=== PATIENT | female | born 1955 | race Hispanic/Latino ===

== ENCOUNTER 2017-08-19 09:13 | Day surgery (SDC) | payer OTHER ==
[2017-08-19 10:01] VITALS: BMI 23.3
[2017-08-19 10:23] VITALS: O2SAT 100
[2017-08-19] MEDS ORDERED: Lactated Ringer's 1,000 ML IV ONE (11:37)
[2017-08-19] MEDS ORDERED: Propofol 10 mg/ml Inj (20 ML) ONE (11:40)
[2017-08-19] MEDS ORDERED: Atropine Sulfate 0.4 mg/ml (0.8mg/2ml) Syringe IV ONE (11:53)
[2017-08-19 13:20] VITALS: RESP 16
[2017-08-19 13:48] VITALS: BP 132/80; PULSE 80; TEMP 97.2
== END 2017-08-19 13:40 | disposition home or self-care (01) ==
LOC: C.ENDO 09:13 → EDSEX 09:13 → C.ENDO 13:40
PROVIDERS: ATTEND Internal Medicine Gastroenterology
DX: D12.5 Benign neoplasm of sigmoid colon (principal); D12.4 Benign neoplasm of descending colon; Z80.0 Family history of malignant neoplasm of digestive organs; K64.1 Second degree hemorrhoids; K57.90 Diverticulosis of intestine, part unspecified, without perforation or abscess without bleeding
CPT/HCPCS: 45380; 88305; J2704; J7120

== ENCOUNTER 2018-04-29 15:43 | Inpatient (IN) | payer OTHER ==
[2018-04-29 15:43] VITALS: BMI 23.3
--- NOTE | 2018-04-29 16:26 | C.PDOC ---
Time Seen by Provider: 04/29/18 16:18 Chief Complaint (Nursing): Abdominal Pain Past Medical History Vital Signs: Last Vital Signs Temp 98.5 F 04/29/18 16:09 Pulse 83 04/29/18 16:09 Resp 18 04/29/18 16:09 BP 115/50 L 04/29/18 16:09 Pulse Ox 97 04/29/18 16:09 - Medical History PMH: Colonic Polyps, Gastritis Denies: Fractures, Chronic Kidney Disease Surgical History: Endoscopy Denies: Pacemaker - Social History Hx Alcohol Use: No Hx Substance Use: No - Immunization History Hx Tetanus Toxoid Vaccination: Yes Hx Influenza Vaccination: Yes Hx Pneumococcal Vaccination: Yes ED Course And Treatment O2 Sat by Pulse Oximetry: 97 Disposition - Disposition
[2018-04-29] MEDS ORDERED: Sodium Chloride 0.9% 1,000 ML IV STA (16:43)
[2018-04-29] MEDS ORDERED: Iohexol 240 (50 ml) PO STA (16:43)
[2018-04-29] MEDS ORDERED: Iohexol 240 (50 ml) ONE (16:58)
[2018-04-29] MEDS ORDERED: Sodium Chloride 0.9% 1,000 ML ONE (16:58)
[2018-04-29 16:59] LABS: BASO % 0.3 % (0.0-2.0); EOS # 0.2 K/uL (0.0-0.7); EOS % 1.6 % (0.0-4.0); LYMPH # 2.9 K/uL (1.0-4.3); LYMPH % 25.7 % (20.0-40.0); MEAN CELL VOLUME 94.2 fL (81.0-99.0); MEAN CORPUSCULAR HEMOGLOBIN 31.9 pg (27.0-31.0); MEAN CORPUSCULAR HGB CONC 33.9 g/dL (33.0-37.0); MEAN PLATELET VOLUME 7.8 fL (7.2-11.7); MONO # 0.9 K/uL (0.0-0.8); MONO % 8.4 % (0.0-10.0); NEUT # 7.2 K/uL (1.8-7.0); RBC 4.07 Mil/uL (3.80-5.20); WHITE BLOOD COUNT 11.3 K/uL (4.8-10.8)
[2018-04-29 17:04] LABS: SQUAMOUS EPITHIAL 1 /hpf (0-5); URINE BACTERIA RARE (<OCC); URINE BILIRUBIN NEGATIVE (NEGATIVE); URINE CLARITY Clear (Clear); URINE COLOR Straw (YELLOW); URINE GLUCOSE (UA) NORMAL (Normal); URINE LEUKOCYTE ESTERASE TRACE Leu/uL (Negative); URINE PROTEIN NEGATIVE (NEGATIVE); URINE UROBILINOGEN NORMAL mg/dL (0.2-1.0)
[2018-04-29 17:07] LABS: PROTHROMBIN TIME 11.1 SECONDS (9.7-12.2); URINE BLOOD 1+ (NEGATIVE)
[2018-04-29 17:20] LABS: ALB/GLOB RATIO 1.4 (1.0-2.1); ALBUMIN 4.2 g/dL (3.5-5.0); ALT/SGPT 34 U/L (9-52); AST/SGOT 30 U/L (14-36); BLOOD UREA NITROGEN 10 mg/dL (7-17); CALCIUM 9.4 mg/dl (8.6-10.4); GFR NON-AFRICAN AMERICAN > 60; LIPASE 42 U/L (23-300)
--- NOTE | 2018-04-29 17:47 | C.PDOC ---
History Of Present Illness 62 y/o female presents to ED with c/o right sided abdominal pain radiating to back for 2 days. Patient denies nausea, vomiting, diarrhea, fever, dysuria, chest pain or any other complaints at this time. <Amee Perales - Last Filed: 04/29/18 19:03> History Per: Patient History/Exam Limitations: no limitations Onset/Duration Of Symptoms: Days Current Symptoms Are (Timing): Still Present Location Of Pain/Discomfort: RLQ <Amee Perales - Last Filed: 04/29/18 19:03> <Michael Boudreaux - Last Filed: 04/29/18 21:39> Time Seen by Provider: 04/29/18 16:18 Chief Complaint (Nursing): Abdominal Pain Past Medical History Reviewed: Historical Data, Nursing Documentation, Vital Signs Vital Signs: Last Vital Signs Temp 98.5 F 04/29/18 16:09 Pulse 83 04/29/18 16:09 Resp 18 04/29/18 16:09 BP 115/50 L 04/29/18 16:09 Pulse Ox 97 04/29/18 16:09 - Medical History PMH: Colonic Polyps, Gastritis Surgical History: Endoscopy Family History: States: No Known Family Hx - Social History Hx Alcohol Use: No Hx Substance Use: No - Immunization History Hx Tetanus Toxoid Vaccination: Yes Hx Influenza Vaccination: Yes Hx Pneumococcal Vaccination: Yes <Amee Perales - Last Filed: 04/29/18 19:03> Vital Signs: Last Vital Signs Temp 98.9 F 04/29/18 19:53 Pulse 82 04/29/18 19:53 Resp 16 04/29/18 19:53 BP 126/85 04/29/18 19:53 Pulse Ox 97 04/29/18 19:53 <Michael Boudreaux - Last Filed: 04/29/18 21:39> Review Of Systems Constitutional: Negative for: Fever, Chills Gastrointestinal: Positive for: Abdominal Pain. Negative for: Nausea, Vomiting, Diarrhea Genitourinary: Negative for: Dysuria, Hematuria Musculoskeletal: Positive for: Back Pain Skin: Negative for: Rash <Amee Perales - Last Filed: 04/29/18 19:03> Physical Exam - Physical Exam Appears: Non-toxic, No Acute Distress Skin: Warm, Dry, No Rash Head: Atraumatic, Normacephalic Eye(s): bilateral: Normal Inspection Oral Mucosa: Moist Neck: Normal ROM, Supple Cardiovascular: Rhythm Regular Respiratory: Normal Breath Sounds, No Rales, No Rhonchi, No Wheezing Gastrointestinal/Abdominal: Soft, Tenderness (RLQ), No Guarding, No Rebound Back: No CVA Tenderness Neurological/Psych: Oriented x3, Normal Speech, Normal Cognition <Amee Perales - Last Filed: 04/29/18 19:03> ED Course And Treatment - Laboratory Results Result Diagrams: 04/29/18 16:55 04/29/18 16:55 O2 Sat by Pulse Oximetry: 97 (RA) Pulse Ox Interpretation: Normal Progress Note: CT abd/pelvis with contrat, Blood work ordered, Zofran, IV fluids administered <Amee Perales - Last Filed: 04/29/18 19:03> - Laboratory Results Result Diagrams: 04/29/18 16:55 04/29/18 16:55 <Michael Boudreaux - Last Filed: 04/29/18 21:39> Disposition - Disposition Disposition Time: 19:04 <Amee Perales Filed: 04/29/18 19:03> Discussed With DrMichelle: Abdoulaye Posadas Comment: accepted the pt onhis service and took over the care at 9:37PM Doctor Will See Patient In The: ED Counseled Patient/Family Regarding: Studies Performed, Diagnosis - POA Present On Arrival: None <Michael Boudreaux - Last Filed: 04/29/18 21:39> - Disposition Disposition: HOSPITALIZED Condition: FAIR Forms: [facility] (Albanian) - Clinical Impression Clinical Impression: Abdominal pain - PA / CODING COMPLIANCE SPECIALIST / Resident Statement MD/DO has reviewed & agrees with the documentation as recorded. - Scribe Statement The provider has reviewed the documentation as recorded by the Elizabeth Haney All medical record entries made by the Elizabeth were at my direction and personally dictated by me. I have reviewed the chart and agree that the record accurately reflects my personal performance of the history, physical exam, medical decision making, and the department course for this patient. I have also personally directed, reviewed, and agree with the discharge instructions and disposition. <Amee Perales - Last Filed: 04/29/18 19:03> Physician Patient Turnover Patient Signed Over To: Michael Boudreaux Handoff Comments: pending CT and re-evaluation <Amee Perales - Last Filed: 04/29/18 19:03> Decision To Admit <Amee Perales - Last Filed: 04/29/18 19:03> - Pt Status Changed To: Hospital Disposition Of: Inpatient - Admit Certification Admit to Inpatient:: After my assessment, the patient will require hospitalization for at least two midnights. This is because of the severity of symptoms shown, intensity of services needed, and/or the medical risk in this patient being treated as an outpatient. - InPatient: Physician Admission Certification:: After my assessment, the patient will require hospitalization for at least two midnights. This is because of the severity of symptoms shown, intensity of services needed, and/or the medical risk in this patient being treated as an outpatient. - . Bed Request Type: Regular Admitting Physician: Abdoulaye Posadas <Michael Boudreaux - Last Filed: 04/29/18 21:39> - . Patient Diagnosis: Abdominal pain
[2018-04-29] MEDS ORDERED: Iohexol 300 100 ML IJ ONE (18:19)
[2018-04-29] MEDS ORDERED: Ciprofloxacin 400mg/200ml D5W 400 MG/200 ML BAG IVPB STA (20:24)
[2018-04-29] MEDS ORDERED: metroNIDAZOLE IV 500 mg/100 ml 500 MG/100 ML BAG IVPB SCH (20:30)
[2018-04-29] MEDS ORDERED: Ciprofloxacin 400mg/200ml D5W 400 MG/200 ML BAG IVPB ONE (20:32)
--- NOTE | 2018-04-29 22:00 | CP.PCM.HP ---
History of Present Illness - History of Present Illness History of Present Illness: General Surgery H&P for Dr. Posadas Pt is a 62F with PMH of gastritis and constipation who presented to the ED for worsening abdominal pain. Patient states that pain began yesterday in the epigastrium moved to the RLQ and gradually worsened so she came to the ER. Patient states pain did not improved with several tums or bowel movements. Patient's last BM was today and normal color, no blood. Patient denies any fevers, chills, nausea, vomiting, diarrhea, chest pain, SOB, dysuria, hematuria, or any other problems. Patient reports this is the first time that she has had anything like this before. PMH: gastritis, constipation PSH: D&C ALL: pcn, cefoxitin Social: smokes 10-15 cigarettes/day, 1 glass of wine a day, no illicit subst ances Present on Admission - Present on Admission Any Indicators Present on Admission: No Review of Systems - Review of Systems All systems: reviewed and no additional remarkable complaints except (as per HPI) Past Patient History - Infectious Disease Hx of Infectious Diseases: None - Past Medical History & Family History Past Medical History?: Yes Past Family History: Reviewed and not pertinent - Past Social History Smoking Status: Light Smoker < 10 Cigarettes Daily Alcohol: < 2 Drinks/Day Drugs: Denies Home Situation {Lives}: With Family - CARDIAC Hx Pacemaker: No - PULMONARY Hx Respiratory Disorders: Yes Hx Respiratory Tract Infection: Yes (MAY) Other/Comment: CHRONIC POST NASAL DRIP WITH BROCHOSPASM - NEUROLOGICAL Hx Neurological Disorder: No - HEENT Hx HEENT Problems: Yes Other/Comment: CHRONIC SINUSITIS AND POST NASAL DRIP WITH BRONCHOSPASM - RENAL Hx Chronic Kidney Disease: No - ENDOCRINE/METABOLIC Other/Comment: PRE DIABETIC - HEMATOLOGICAL/ONCOLOGICAL Hx Blood Disorders: No Hx Blood Transfusions: No Hx Cancer: No - INTEGUMENTARY Hx Dermatological Problems: Yes Hx Basil Cell: Yes (LEFT SIDE FACE) - MUSCULOSKELETAL/RHEUMATOLOGICAL Hx Fractures: No - GASTROINTESTINAL Hx Gastritis: Yes - GENITOURINARY/GYNECOLOGICAL Hx Genitourinary Disorders: Yes Other/Comment: DEMISE IN UTERO WITH SIGNIFICANT SURGERY PER REPORT ALMOST FULL TERM - PSYCHIATRIC Hx Substance Use: No - SURGICAL HISTORY Hx Surgeries: Yes Hx Dilation and Curettage: Yes Other/Comment: BASAL CELL REMOVED FROM FACE - ANESTHESIA Hx Anesthesia: Yes Hx Anesthesia Reactions: No Hx Malignant Hyperthermia: No Meds Allergies/Adverse Reactions: Allergies Allergy/AdvReac Type Severity Reaction Status Date / Time cefoxitin [From Mefoxin] Allergy RASH Verified 08/19/17 10:02 Penicillins Allergy RASH Verified 08/19/17 10:02 Physical Exam - Constitutional Appears: Well, Non-toxic, No Acute Distress - Head Exam Head Exam: ATRAUMATIC, NORMOCEPHALIC - Eye Exam Eye Exam: Normal appearance. absent: Conjunctival injection, Scleral icterus - ENT Exam ENT Exam: Mucous Membranes Moist, Normal Oropharynx - Respiratory Exam Respiratory Exam: NORMAL BREATHING PATTERN. absent: Accessory Muscle Use, Respiratory Distress - Cardiovascular Exam Cardiovascular Exam: RRR - GI/Abdominal Exam GI & Abdominal Exam: Soft, Tenderness (RLQ tenderness to palpation with RLQ referred pain when the RUQ and LLQ are palpated). absent: Distended, Guarding, Rebound - Extremities Exam Extremities exam: Positive for: pedal pulses present. Negative for: calf tenderness, pedal edema - Back Exam Back exam: absent: CVA tenderness (L), CVA tenderness (R) - Neurological Exam Neurological exam: Alert, Oriented x3 - Psychiatric Exam Psychiatric exam: Normal Affect, Normal Mood - Skin Skin Exam: Dry, Normal Color, Warm Results - Vital Signs Recent Vital Signs: Last Vital Signs Temp 99.1 F 04/29/18 21:47 Pulse 78 04/29/18 21:47 Resp 18 04/29/18 21:47 BP 134/92 H 04/29/18 21:47 Pulse Ox 98 04/29/18 21:47 - Labs Result Diagrams: 04/29/18 16:55 04/29/18 16:55 Labs: Laboratory Results - last 24 hr 04/29/18 04/29/18 04/29/18 16:55 16:55 16:55 WBC 11.3 H RBC 4.07 Hgb 13.0 Hct 38.3 MCV 94.2 MCH 31.9 H MCHC 33.9 RDW 14.0 Plt Count 286 MPV 7.8 Neut % (Auto) 64.0 Lymph % (Auto) 25.7 [place] % (Auto) 8.4 Eos % (Auto) 1.6 Baso % (Auto) 0.3 Neut # (Auto) 7.2 H Lymph # (Auto) 2.9 [place] # (Auto) 0.9 H Eos # (Auto) 0.2 Baso # (Auto) 0.0 PT 11.1 INR 1.0 APTT 37 H Sodium Potassium Chloride Carbon Dioxide Anion Gap BUN Creatinine Est GFR ( Amer) Est GFR (Non-Af Amer) Random Glucose Calcium Total Bilirubin AST ALT Alkaline Phosphatase Total Protein Albumin Globulin Albumin/Globulin Ratio Lipase Urine Color Straw Urine Clarity Clear Urine pH 7.0 Ur Specific [place] 1.004 Urine Protein Negative Urine Glucose (UA) Normal Urine Ketones Negative Urine Blood 1+ H Urine Nitrate Negative Urine Bilirubin Negative Urine Urobilinogen Normal Ur Leukocyte Esterase Trace Urine WBC (Auto) 3 Urine RBC (Auto) 1 Ur Squamous Epith Cells 1 Urine Bacteria Rare 04/29/18 16:55 WBC RBC Hgb Hct MCV MCH MCHC RDW Plt Count MPV Neut % (Auto) Lymph % (Auto) [place] % (Auto) Eos % (Auto) Baso % (Auto) Neut # (Auto) Lymph # (Auto) [place] # (Auto) Eos # (Auto) Baso # (Auto) PT INR APTT Sodium 141 Potassium 3.9 Chloride 104 Carbon Dioxide 25 Anion Gap 15 BUN 10 Creatinine 0.5 L Est GFR ( Amer) > 60 Est GFR (Non-Af Amer) > 60 Random Glucose 87 Calcium 9.4 Total Bilirubin 1.1 AST 30 ALT 34 Alkaline Phosphatase 79 Total Protein 7.1 Albumin 4.2 Globulin 2.9 Albumin/Globulin Ratio 1.4 Lipase 42 Urine Color Urine Clarity Urine pH Ur Specific [place] Urine Protein Urine Glucose (UA) Urine Ketones Urine Blood Urine Nitrate Urine Bilirubin Urine Urobilinogen Ur Leukocyte Esterase Urine WBC (Auto) Urine RBC (Auto) Ur Squamous Epith Cells Urine Bacteria - Imaging and Cardiology CT scan - abdomen Status: Image reviewed by me, Report reviewed by me Assessment & Plan - Assessment and Plan (Free Text) Assessment: 62F with acute appendicitis Plan: Admit to med/surgery floor Plan for OR tomorrow AM for laparoscopic appendectomy IVF IV antibiotics PRN pain and nausea medication NPO after midnight AM labs protonix, stool softeners, SCD, incentive spirometers Discussed with Dr. Posadas, Meagan Diaz, PGY2
[2018-04-29] MEDS ORDERED: metroNIDAZOLE IV 500 mg/100 ml 500 MG/100 ML BAG IVPB STA (22:04)
[2018-04-30] MEDS: Lactated Ringer's 1,000 ML IV SCH ×2 (00:05→07:09)
[2018-04-30] MEDS: Oxycodone/Acetaminophen 5/325 mg Tab PO PRN ×2 (00:50→22:09)
[2018-04-30 06:08] LABS: BASO % 0.5 % (0.0-2.0); EOS # 0.2 K/uL (0.0-0.7); EOS % 1.8 % (0.0-4.0); HEMOGLOBIN 11.3 g/dL (11.0-16.0); LYMPH # 2.7 K/uL (1.0-4.3); LYMPH % 25.6 % (20.0-40.0); MEAN CELL VOLUME 93.6 fL (81.0-99.0); MEAN CORPUSCULAR HEMOGLOBIN 31.7 pg (27.0-31.0); MEAN CORPUSCULAR HGB CONC 33.9 g/dL (33.0-37.0); MEAN PLATELET VOLUME 7.8 fL (7.2-11.7); MONO % 9.7 % (0.0-10.0); NEUT # 6.6 K/uL (1.8-7.0); NEUT % 62.4 % (50.0-75.0); RBC 3.55 Mil/uL (3.80-5.20); RED CELL DISTRIBUTION WIDTH 14.2 % (11.5-14.5); WHITE BLOOD COUNT 10.6 K/uL (4.8-10.8)
[2018-04-30 06:42] LABS: ALB/GLOB RATIO 1.3 (1.0-2.1); ALBUMIN 3.2 g/dL (3.5-5.0); ALT/SGPT 30 U/L (9-52); AST/SGOT 18 U/L (14-36); BLOOD UREA NITROGEN 7 mg/dL (7-17); CALCIUM 8.3 mg/dl (8.6-10.4); GFR NON-AFRICAN AMERICAN > 60
[2018-04-30] MEDS: Ciprofloxacin 400mg/200ml D5W 400 MG/200 ML BAG IVPB SCH ×2 (07:08→20:25)
--- NOTE | 2018-04-30 08:24 | RAD ---
Date of service: 04/30/2018 HISTORY: pre-op COMPARISON: No prior. FINDINGS: LUNGS: The lungs are well inflated and clear. PLEURA: No pleural effusions or pneumothorax. CARDIOVASCULAR: The heart is normal in size. No aortic atherosclerotic calcification present. OSSEOUS STRUCTURES: Within normal limits for the patient's age. VISUALIZED UPPER ABDOMEN: Normal. OTHER FINDINGS: None. IMPRESSION: No active pulmonary disease.
--- NOTE | 2018-04-30 09:02 | CT ---
PROCEDURE: CT Abdomen and Pelvis with oral and IV contrast. HISTORY: abd pain RLQ COMPARISON: None available TECHNIQUE: Contiguous axial images of the abdomen and pelvis. Oral and IV contrast was administered. Coronal and Sagittal reformats generated and reviewed. Contrast dose: 100 cc Omnipaque 300 Radiation dose: Total exam DLP = 433.51 mGy-cm. This CT exam was performed using one or more of the following dose reduction techniques: Automated exposure control, adjustment of the mA and/or kV according to patient size, and/or use of iterative reconstruction technique. FINDINGS: LOWER THORAX: No visible consolidation, pleural effusion, or pneumothorax. LIVER: Tiny too small to characterize hepatic hypodensities, statistically likely cysts or hemangiomas. GALLBLADDER AND BILE DUCTS: Unremarkable. PANCREAS: Unremarkable. SPLEEN: Unremarkable. ADRENALS: Mild adrenal gland hypertrophy. KIDNEYS AND URETERS: The kidneys enhance symmetrically. No hydronephrosis or obstructing renal calculus. Bilateral too small to characterize renal hypodensities, statistically likely cysts. BLADDER: The urinary bladder appears unremarkable. REPRODUCTIVE: Uterus is present. 3 cm partially calcified uterine fibroid. APPENDIX: The appendix is dilated measuring approximately 12 mm in diameter with associated inflammatory stranding and wall thickening. BOWEL: Gastric wall thickening may be exaggerated by nondistention however gastritis is suspected. The bowel loops appear within normal limits of caliber without evidence of intestinal obstruction. Wall thickening of the right colon and terminal ileum may reflect colitis/enteritis secondary to acute appendicitis. PERITONEUM: No significant free fluid. No definite free air. LYMPH NODES: No bulky lymphadenopathy identified. VASCULATURE: No aortic aneurysm. BONES: Mild degenerative changes. OTHER FINDINGS: None. IMPRESSION: The appendix is dilated measuring approximately 12 mm in diameter with associated inflammatory stranding and wall thickening. Appearance consistent with acute appendicitis. Gastric wall thickening may be exaggerated by nondistention however gastritis is suspected. The bowel loops appear within normal limits of caliber without evidence of intestinal obstruction. Wall thickening of the right colon and terminal ileum may reflect colitis/enteritis secondary to acute appendicitis. Additional findings. Preliminary impression was provided by [employer].
[2018-04-30] MEDS: Fluticasone Nasal 50 mcg/Spray NAS SCH (09:29)
[2018-04-30] MEDS ORDERED: Propofol 10 mg/ml Inj (20 ML) ONE (10:31)
[2018-04-30] MEDS ORDERED: Rocuronium 10 mg/ml (5 ml) ONE (10:32)
[2018-04-30] MEDS ORDERED: Bupivacaine-Epi 0.5%-1:200,000 PF Inj ONE (11:10)
[2018-04-30] MEDS ORDERED: Lactated Ringer's 1,000 ML IV SCH (11:30)
[2018-04-30] MEDS ORDERED: Neostigmine Methylsulfate 3mg/3ml Syringe IV ONE (11:36)
--- NOTE | 2018-04-30 12:32 | PCM.SURG1 ---
Surgeon's Initial Post Op Note - Surgeon's Notes Surgeon: Dr. Posadas Imcu Specialist: Dr. Graham PGY-4 Type of Anesthesia: General Endo, Local Pre-Operative Diagnosis: Acute appendicitis Operative Findings: Acute appendicitis Post-Operative Diagnosis: Acute appendicitis Operation Performed: Laparoscopic appendectomy Specimen/Specimens Removed: appendix Estimated Blood Loss: EBL {In ML}: 10 Blood Products Given: N/A Drains Used: No Drains Post-Op Condition: Fair Date of Surgery/Procedure: 04/30/18 Time of Surgery/Procedure: 12:05
[2018-04-30 17:20] VITALS: RESP 20
[2018-05-01] MEDS: Lactated Ringer's 1,000 ML IV SCH
[2018-05-01 07:55] LABS: BASO % 0.1 % (0.0-2.0); EOS # 0.1 K/uL (0.0-0.7); EOS % 0.7 % (0.0-4.0); HEMOGLOBIN 10.5 g/dL (11.0-16.0); LYMPH # 2.7 K/uL (1.0-4.3); LYMPH % 23.7 % (20.0-40.0); MEAN CORPUSCULAR HEMOGLOBIN 31.9 pg (27.0-31.0); MEAN CORPUSCULAR HGB CONC 33.6 g/dL (33.0-37.0); MEAN PLATELET VOLUME 8.2 fL (7.2-11.7); MONO # 0.9 K/uL (0.0-0.8); MONO % 7.9 % (0.0-10.0); NEUT # 7.7 K/uL (1.8-7.0); NEUT % 67.6 % (50.0-75.0); RBC 3.3 Mil/uL (3.80-5.20); RED CELL DISTRIBUTION WIDTH 13.7 % (11.5-14.5); WHITE BLOOD COUNT 11.3 K/uL (4.8-10.8)
[2018-05-01] MEDS: Ciprofloxacin 400mg/200ml D5W 400 MG/200 ML BAG IVPB SCH (08:17)
[2018-05-01 08:23] LABS: ALB/GLOB RATIO 1.2 (1.0-2.1); ALBUMIN 2.9 g/dL (3.5-5.0); ALT/SGPT 27 U/L (9-52); AST/SGOT 21 U/L (14-36); BLOOD UREA NITROGEN 9 mg/dL (7-17); CALCIUM 8.3 mg/dl (8.6-10.4); GFR NON-AFRICAN AMERICAN > 60
[2018-05-01] MEDS: Fluticasone Nasal 50 mcg/Spray NAS SCH (09:48)
[2018-05-01] MEDS: Oxycodone/Acetaminophen 5/325 mg Tab PO PRN (11:19)
--- NOTE | 2018-05-01 13:34 | CP.PCM.DIS ---
Provider - Provider Date of Admission: 04/29/18 21:36 Attending physician: Abdoulaye Posadas MD Consults: none Time Spent in preparation of Discharge (in minutes): 30 Diagnosis - Discharge Diagnosis (1) Appendicitis Status: Resolved Hospital Course - Lab Results Lab Results: Most Recent Lab Values WBC 11.3 K/uL (4.8-10.8) H 05/01/18 07:00 RBC 3.30 Mil/uL (3.80-5.20) L 05/01/18 07:00 Hgb 10.5 g/dL (11.0-16.0) L 05/01/18 07:00 Hct 31.3 % (34.0-47.0) L 05/01/18 07:00 MCV 95.0 fL (81.0-99.0) 05/01/18 07:00 MCH 31.9 pg (27.0-31.0) H 05/01/18 07:00 MCHC 33.6 g/dL (33.0-37.0) 05/01/18 07:00 RDW 13.7 % (11.5-14.5) 05/01/18 07:00 Plt Count 226 K/uL (130-400) 05/01/18 07:00 MPV 8.2 fL (7.2-11.7) 05/01/18 07:00 Neut % (Auto) 67.6 % (50.0-75.0) 05/01/18 07:00 Lymph % (Auto) 23.7 % (20.0-40.0) 05/01/18 07:00 [place] % (Auto) 7.9 % (0.0-10.0) 05/01/18 07:00 Eos % (Auto) 0.7 % (0.0-4.0) 05/01/18 07:00 Baso % (Auto) 0.1 % (0.0-2.0) 05/01/18 07:00 Neut # (Auto) 7.7 K/uL (1.8-7.0) H 05/01/18 07:00 Lymph # (Auto) 2.7 K/uL (1.0-4.3) 05/01/18 07:00 [place] # (Auto) 0.9 K/uL (0.0-0.8) H 05/01/18 07:00 Eos # (Auto) 0.1 K/uL (0.0-0.7) 05/01/18 07:00 Baso # (Auto) 0.0 K/uL (0.0-0.2) 05/01/18 07:00 PT 11.1 SECONDS (9.7-12.2) 04/29/18 16:55 INR 1.0 04/29/18 16:55 APTT 37 SECONDS (21-34) H 04/29/18 16:55 Sodium 137 mmol/L (132-148) 05/01/18 07:00 Potassium 3.6 mmol/L (3.6-5.2) 05/01/18 07:00 Chloride 105 mmol/L (98-107) 05/01/18 07:00 Carbon Dioxide 27 mmol/L (22-30) 05/01/18 07:00 Anion Gap 9 (10-20) L 05/01/18 07:00 BUN 9 mg/dL (7-17) 05/01/18 07:00 Creatinine 0.6 mg/dL (0.7-1.2) L 05/01/18 07:00 Est GFR ( Amer) > 60 05/01/18 07:00 Est GFR (Non-Af Amer) > 60 05/01/18 07:00 Random Glucose 117 mg/dL (65-105) H 05/01/18 07:00 Calcium 8.3 mg/dl (8.6-10.4) L 05/01/18 07:00 Total Bilirubin 0.6 mg/dL (0.2-1.3) 05/01/18 07:00 AST 21 U/L (14-36) 05/01/18 07:00 ALT 27 U/L (9-52) 05/01/18 07:00 Alkaline Phosphatase 59 U/L (38-126) 05/01/18 07:00 Total Protein 5.4 g/dL (6.3-8.3) L 05/01/18 07:00 Albumin 2.9 g/dL (3.5-5.0) L 05/01/18 07:00 Globulin 2.5 gm/dL (2.2-3.9) 05/01/18 07:00 Albumin/Globulin Ratio 1.2 (1.0-2.1) 18 07:00 Lipase 42 U/L (23-300) 04/29/18 16:55 Urine Color Straw (YELLOW) 04/29/18 16:55 Urine Clarity Clear (Clear) 04/29/18 16:55 Urine pH 7.0 (5.0-8.0) 04/29/18 16:55 Ur Specific [place] 1.004 (1.003-1.030) 04/29/18 16:55 Urine Protein Negative mg/dL (NEGATIVE) 04/29/18 16:55 Urine Glucose (UA) Normal mg/dL (Normal) 04/29/18 16:55 Urine Ketones Negative mg/dL (NEGATIVE) 04/29/18 16:55 Urine Blood 1+ (NEGATIVE) H 04/29/18 16:55 Urine Nitrate Negative (NEGATIVE) 04/29/18 16:55 Urine Bilirubin Negative (NEGATIVE) 04/29/18 16:55 Urine Urobilinogen Normal mg/dL (0.2-1.0) 04/29/18 16:55 Ur Leukocyte Esterase Trace Ezequiel/uL (Negative) 04/29/18 16:55 Urine WBC (Auto) 3 /hpf (0-5) 04/29/18 16:55 Urine RBC (Auto) 1 /hpf (0-3) 04/29/18 16:55 Ur Squamous Epith Cells 1 /hpf (0-5) 04/29/18 16:55 Urine Bacteria Rare (<OCC) 04/29/18 16:55 - Hospital Course Hospital Course: 62F with PMHx of gastritis and constipation presented to the ED for worsening abdominal pain on 04/29/18. The pain began in the epigastrium and moved to the RLQ. Patient denied any fevers, chills, nausea, vomiting, diarrhea, chest pain, SOB, dysuria, hematuria. CT Abd/pelvis showed acute appendicitis and gastritis. The next morning, she was taken to the OR for laparoscopic appendectomy. On POD#1, she was tolerating regular diet, ambulating, passing flatus. Labs were WNL and she was discharged home to follow up with Dr. Posadas in his office. Discharge Exam - Head Exam Head Exam: ATRAUMATIC, NORMOCEPHALIC - Eye Exam Eye Exam: EOMI, Normal appearance - Respiratory Exam Respiratory Exam: NORMAL BREATHING PATTERN. absent: Respiratory Distress - Cardiovascular Exam Cardiovascular Exam: +S1, +S2 - GI/Abdominal Exam GI & Abdominal Exam: Soft, Tenderness (mild tenderness at incision sites). absent: Distended, Firm, Guarding Additional comments: Dermabond in place over laparoscopic incision sites - Neurological Exam Neurological exam: Alert, Oriented x3 - Psychiatric Exam Psychiatric exam: Normal Affect, Normal Mood - Skin Skin Exam: Dry, Warm Discharge Plan - Follow Up Plan Condition: FAIR Disposition: HOME/ ROUTINE Patient education suggested?: Yes Instructions: Appendectomy, Laparoscopic Surgery (DC) Additional Instructions: Follow up with Dr. Posadas in his office in 1-2 weeks, call to make appointment May shower tomorrow, but do not take a bath or swim Leave Dermabond in place, it will fall off on its own over time Avoid heavy lifting for 4 weeks May take Tylenol or Ibuprofen PRN pain Referrals: Abdoulaye Posadas MD [Staff Provider] -
--- NOTE | 2018-05-01 14:27 | CARD ---
APPROVED REPORT Date of service: 04/30/2018 EKG Measurement Heart [id number] <Conclusion> Normal sinus rhythm Normal ECG
[2018-05-01 15:57] VITALS: BP 101/68; PULSE 56; TEMP 98.9; O2SAT 96
[2018-05-02] MEDS ORDERED: Pneumococcal 23-Valent Vaccine IM ONE (10:00)
--- NOTE | 2018-05-05 05:28 | OP ---
PROCEDURE DATE: 04/30/2018 PREOPERATIVE DIAGNOSIS: Acute appendicitis. POSTOPERATIVE DIAGNOSIS: Acute appendicitis. PROCEDURE PERFORMED: Laparoscopic appendectomy. SURGEON: Abdoulaye Posadas MD FINDINGS: Appendix was edematous. There was a bit of gangrenous portion at the midportion. There was no gross perforation noted. DESCRIPTION OF PROCEDURE: Under general anesthesia, the patient was prepared and draped in the usual sterile fashion. CO2 was insufflated through a Veress needle inserted in the umbilicus to about 15 mmHg pressure. An incision was made in the inferior portion of the umbilicus. An 11-mm trocar was inserted through which a laparoscope was inserted. Under direct vision, a 5-mm suprapubic port and then a 5-mm left lower quadrant port were inserted. The patient was then placed in a reverse Trendelenburg position and was turned over towards the left side. The lens was then transferred into the suprapubic port, and then the appendix was identified. It was transected with the aid of the AutoSuture model Endo ERIC first the mesoappendix, then the base of appendix. This was placed in an EndoCatch and then was extracted through the umbilical port. The area was irrigated with large amounts of saline solution. The irrigating fluid was suctioned out. CO2 was allowed to escape from the peritoneal cavity. The trocars were removed. The wound was closed in a routine fashion. Estimated blood loss is 5 mL. No complications. Abdoulaye Posadas MD
== END 2018-05-01 16:31 | disposition home or self-care (01) | DRG 343 ==
LOC: C.ER 15:43 → C.9E 21:36 → C.3T 21:49
PROVIDERS: ADMIT Surgery; ATTEND Surgery
PROC: 0DTJ4ZZ Resection of Appendix, Percutaneous Endoscopic Approach (ICD-10-PCS; principal; 2018-04-30 11:15)
DX: K35.80 Unspecified acute appendicitis (principal); F17.210 Nicotine dependence, cigarettes, uncomplicated; K29.70 Gastritis, unspecified, without bleeding; J32.9 Chronic sinusitis, unspecified